=== PATIENT | female | born 1980 | race Hispanic/Latino ===

== ENCOUNTER 2019-08-06 04:12 | Emergency (ER) | payer SELFPAY ==
[2019-08-06] MEDS ORDERED: DECADRON IM ONE (06:21)
[2019-08-06] MEDS ORDERED: BENADRYL PO ONE (06:21)
[2019-08-06] MEDS ORDERED: PEPCID PO ONE (06:21)
--- NOTE | 2019-08-06 06:27 | Emergency Department Report ---
- General Chief complaint: Allergic Reaction Stated complaint: HANDS AND FEET SWELLING WITH RASH Time Seen by Provider: 08/06/19 05:10 Source: patient Mode of arrival: Ambulatory Limitations: No Limitations - History of Present Illness Initial comments: Patient is a 39-year-old female presents the emergency room with complaints of a rash to the bilateral upper extremities, feet, and behind the neck that began a month ago. Patient was evaluated in the emergency department on 07/14/19 and given hydrocortisone cream, prednisone, hydroxyzine. she states that her symptoms resolved but when she finished the steroids and ran out of the cream she began to have a symptoms again. pt states that she figured out she was having a reaction to her gain scented laundry detergent. She states she just realized that it was from the detergent and bought some nonscented detergent yesterday. Denies any fever or drainage. pt states that she has been taking Benadryl and Zyrtec without much relief. She did not follow-up with a primary care doctor. - Related Data Previous Rx's Medication Instructions Recorded Last Taken Type Hydrocortisone [Hydrocortisone 1 applicatio TP TID #1 oint...g. 07/14/19 Unknown Rx 2.5% OINT] predniSONE [Deltasone] 40 mg PO QDAY 7 Days #14 tab 07/14/19 Unknown Rx Triamcinolone 0.5% [Kenalog 0.5% 1 applic TP TID #1 tube 08/06/19 Unknown Rx CREAM] hydrOXYzine HCL [Atarax] 25 mg PO Q6HR PRN #12 tablet 08/06/19 Unknown Rx Allergies Allergy/AdvReac Type Severity Reaction Status Date / Time No Known Allergies Allergy Unverified 07/14/19 15:10 Abscess Boil HPI - HPI Chief Complaint: Allergic Reaction Stated Complaint: HANDS AND FEET SWELLING WITH RASH Time Seen by Provider: 08/06/19 05:10 Home Medications: Previous Rx's Medication Instructions Recorded Last Taken Type Hydrocortisone [Hydrocortisone 1 applicatio TP TID #1 oint...g. 07/14/19 Unknown Rx 2.5% OINT] predniSONE [Deltasone] 40 mg PO QDAY 7 Days #14 tab 07/14/19 Unknown Rx Triamcinolone 0.5% [Kenalog 0.5% 1 applic TP TID #1 tube 08/06/19 Unknown Rx CREAM] hydrOXYzine HCL [Atarax] 25 mg PO Q6HR PRN #12 tablet 08/06/19 Unknown Rx Allergies/Adverse Reactions: Allergies Allergy/AdvReac Type Severity Reaction Status Date / Time No Known Allergies Allergy Unverified 07/14/19 15:10 ED Review of Systems ROS: Stated complaint: HANDS AND FEET SWELLING WITH RASH Other details as noted in HPI Comment: All other systems reviewed and negative ED Past Medical Hx - Past Medical History Previous Medical History?: Yes Hx Kidney Stones: Yes - Surgical History Past Surgical History?: Yes Additional Surgical History: kidneystones - Social History Smoking Status: Current Every Day Smoker - Medications Home Medications: Home Medications Medication Instructions Recorded Confirmed Last Taken Type Hydrocortisone [Hydrocortisone 1 applicatio TP TID #1 oint...g. 07/14/19 Unknown Rx 2.5% OINT] predniSONE [Deltasone] 40 mg PO QDAY 7 Days #14 tab 07/14/19 Unknown Rx Triamcinolone 0.5% [Kenalog 0.5% 1 applic TP TID #1 tube 08/06/19 Unknown Rx CREAM] hydrOXYzine HCL [Atarax] 25 mg PO Q6HR PRN #12 tablet 08/06/19 Unknown Rx ED Physical Exam - General Limitations: No Limitations General appearance: alert, in no apparent distress - Head Head exam: Present: atraumatic, normocephalic - Eye Eye exam: Present: normal appearance - ENT ENT exam: Present: mucous membranes moist - Respiratory Respiratory exam: Present: normal lung sounds bilaterally. Absent: respiratory distress, wheezes, rales, rhonchi, stridor, chest wall tenderness, accessory muscle use, decreased breath sounds, prolonged expiratory - Cardiovascular Cardiovascular Exam: Present: regular rate, normal rhythm, normal heart sounds. Absent: systolic murmur, diastolic murmur, rubs, gallop - Neurological Exam Neurological exam: Present: alert, oriented X3 - Psychiatric Psychiatric exam: Present: normal affect, normal mood - Skin Skin exam: Present: warm, dry, other (erythema and dry skin present to the BUE, bilateral feet, and posterior neck, no drainage, no skin denuding, no blistering) ED Course Vital Signs 08/06/19 08/06/19 08/06/19 04:15 04:23 06:45 Temperature 98.0 F 98.0 F Pulse Rate 97 H 97 H Respiratory 18 16 18 Rate Blood Pressure 160/95 Blood Pressure 160/95 [Right] O2 Sat by Pulse 96 96 Oximetry 08/06/19 07:08 Temperature Pulse Rate 87 Respiratory 87 H Rate Blood Pressure Blood Pressure 151/96 [Right] O2 Sat by Pulse 96 Oximetry ED Medical Decision Making - Medical Decision Making Patient is a 39-year-old female presents the emergency room with complaints of a rash to the bilateral upper extremities, feet, and behind the neck that began a month ago. Patient was evaluated in the emergency department on 07/14/19 and given hydrocortisone cream, prednisone, hydroxyzine. she states that her symptoms resolved but when she finished the steroids and ran out of the cream she began to have a symptoms again. pt states that she figured out she was having a reaction to her gain scented laundry detergent. She states she just realized that it was from the detergent and bought some nonscented detergent yesterday. Denies any fever or drainage. pt states that she has been taking Benadryl and Zyrtec without much relief. She did not follow-up with a primary care doctor. VSS. on exam: erythema and dry skin present to the BUE, bilateral feet, and posterior neck, no drainage, no skin denuding, no blistering. pt given dexamethasone injection, pepcid, and benadryl. pt given prescription for triamcinolone and hydroxyzine. advised pt to please take medication as prescribed. Do not drive or operate heavy machinery while taking hydroxyzine due to potential for drowsiness. please follow-up with a primary care doctor or meter tester primary in the next 2-3 days. It is very important that you follow-up. given a list of community clinics. Return to the emergency room for any new or worsening symptoms. - Differential Diagnosis contact derm, irritant derm, eczema, allergic reaction Critical care attestation.: If time is entered above; I have spent that time in minutes in the direct care of this critically ill patient, excluding procedure time. ED Disposition Clinical Impression: Rash Disposition: DC-01 TO HOME OR SELFCARE Is pt being admited?: No Does the pt Need Aspirin: No Condition: Stable Instructions: Acute Rash (ED) Additional Instructions: Please take medication as prescribed. Do not drive or operate heavy machinery while taking hydroxyzine due to potential for drowsiness. please follow-up with a primary care doctor or meter tester primary in the next 2-3 days. It is very important that you follow-up. given a list of community clinics. Return to the emergency room for any new or worsening symptoms. Prescriptions: hydrOXYzine HCL [Atarax] 25 mg PO Q6HR PRN #12 tablet PRN Reason: Itching Triamcinolone 0.5% [Kenalog 0.5% CREAM] 1 applic TP TID #1 tube Referrals: [facility] [Provider Group] - 2-3 Days [facility] [Outside] - 2-3 Days [facility] [Outside] - 2-3 Days Time of Disposition: 06:27 Print Language: VINCENTIAN
[2019-08-06 07:09] VITALS: BP 151/96
== END 2019-08-06 07:08 | disposition home or self-care (01) ==
LOC: ED 04:12
DX: T78.40XA Allergy, unspecified, initial encounter (principal); R21 Rash and other nonspecific skin eruption; F17.200 Nicotine dependence, unspecified, uncomplicated; Z87.442 Personal history of urinary calculi; Z79.899 Other long term (current) drug therapy; X58.XXXA Exposure to other specified factors, initial encounter; Y93.89 Activity, other specified; Y92.89 Other specified places as the place of occurrence of the external cause; Y99.8 Other external cause status
CPT/HCPCS: 96372; 99282; J1100